=== PATIENT | female | born 1970 ===

== ENCOUNTER 2024-12-06 07:37 | Day surgery (SDC) | payer OTHER ==
[~2024-12-06 07:37] MED LIST: Sodium Chloride 0.9% 10 ML Syringe FLUSH PRN; Sodium Chloride 0.9% 10 ML Syringe FLUSH SCH
[2024-12-06] MEDS: Lactated Ringers 1,000 ML IV SCH (07:55)
[2024-12-06] MEDS ORDERED: dexmedeTOMIDine HCl 200 MCG/2 ML SDV ONE (08:16)
[2024-12-06] MEDS ORDERED: Lidocaine 1% 5 ML VIAL ONE (08:16)
[2024-12-06] MEDS ORDERED: Propofol 200 MG/20 ML SDV ONE ×4 (08:16→09:50)
== END 2024-12-06 10:55 | disposition home or self-care (01) ==
LOC: JD.SDS 07:37
PROVIDERS: ATTEND Surgery
DX: Z12.11 Encounter for screening for malignant neoplasm of colon (principal); D12.2 Benign neoplasm of ascending colon; D12.3 Benign neoplasm of transverse colon; D12.6 Benign neoplasm of colon, unspecified; K63.5 Polyp of colon; K20.0 Eosinophilic esophagitis; K57.30 Diverticulosis of large intestine without perforation or abscess without bleeding; K44.9 Diaphragmatic hernia without obstruction or gangrene; K29.80 Duodenitis without bleeding; K21.9 Gastro-esophageal reflux disease without esophagitis; F17.210 Nicotine dependence, cigarettes, uncomplicated
CPT/HCPCS: 43239; 45380; 45385; C9777; J2003; J2704; J7120; 00813